=== PATIENT | female | born 1975 ===

== ENCOUNTER → 2020-05-23 | Outpatient (CLI) | payer OTHER ==
[~2020-05-23] MED LIST: GADOBUTROL 10 MMOL/10 ML (GADAVIST) VIAL IV ONE; OMEP-10 PO
--- NOTE | 2020-05-23 12:52 | Diagnostic Imaging Report ---
PROCEDURE: MRI pelvis with and without contrast. TECHNIQUE: Multiplanar, multisequence MRI of the pelvis was performed with and without contrast. INDICATION: Dysmenorrhea, painful periods. Correlation limited to noncontrasted abdominal pelvic CT performed in 2010. FINDINGS: There is a T2 hypointense and mildly enhancing solid mass measuring 1.8 cm long axis which appears to be reflective of an endometrial lesion at the mid body eccentric to the right. The endometrial mucosal itself is not significantly over thickened. The uterus is heterogeneous with left fundal fibroid measuring 1.8 cm and likely a right fundal body junction mass measuring 1.5 cm as well as a small mass in the posterior body of the lower uterine segment of the mid to lower uterine segment measuring 1.6 cm. The T2 hypointense junctional zone is somewhat ill-defined in this patient with a gradual zone of transition between it and the otherwise normal myometrial signal intensity, a component of adenomyosis could not be excluded. There is a follicular cyst in the left ovary showing no complexity, a few small subcentimeter follicular cysts in the right ovary present. No findings to suggest adnexal torsion. There are cervical nabothian cysts present, the largest of which measured 1.5 cm. The urinary bladder unremarkable. No pelvic sidewall lesion or pelvic adenopathy. There was no ascites. The marrow signal intensity unremarkable. IMPRESSION: 1. Small polypoid type lesion right of midline appears to be of endometrial origin. There are uterine myometrial fibroids present as well as cervical nabothian cysts. Unremarkable appearance of the ovaries. No free fluid. No lymphadenopathy. No suspicious bony pathology. 2. Slightly thickened and ill-defined T2 hypointense junctional zone suggesting element of underlying adenomyosis could not be excluded. Dictated by: Dictated on workstation # [id number]
== END ==
LOC: RAD 09:36
PROVIDERS: ATTEND Nurse Practitioner Family
DX: D25.9 Leiomyoma of uterus, unspecified (principal); N88.8 Other specified noninflammatory disorders of cervix uteri
CPT/HCPCS: 72197